=== PATIENT | male | born 1995 | race Caucasian/White ===

== ENCOUNTER 2017-09-06 22:55 | Emergency (ER) | payer BC ==
[2017-09-06 22:58] VITALS: O2SAT 98
[2017-09-06] MEDS ORDERED: Sodium Chloride 0.9% 1,000 ML IV STA (23:37)
--- NOTE | 2017-09-06 23:44 | ED PDOC ---
HPI: General Adult Time Seen by Provider: 09/06/17 23:18 Chief Complaint (Nursing): Syncope Chief Complaint (Provider): Flu-Like Symptoms History Per: Patient History/Exam Limitations: no limitations Onset/Duration Of Symptoms: Days (x1) Have you had recent travel within the past 21 days to any of the following countries: [place], [place], [place] or [place]?: No Current Symptoms Are (Timing): Still Present Additional Complaint(s): 22 year old male presents to ED with complaints of flu-like symptoms x1 day and has no past medical history. (+) cough, congestion, sore throat, body aches, fever, and decreased appetite. Notes that he attempted to cook and lost consciousness. (-) head injury, chest pain, SOB, or palpitations. Notes taking Dayquil all day today. PCP: None Past Medical History Reviewed: Historical Data, Nursing Documentation, Vital Signs Vital Signs: Last Vital Signs Temp 101.6 F H 09/06/17 22:56 Pulse 100 H 09/06/17 22:56 Resp 18 09/06/17 22:56 BP 115/61 09/06/17 22:56 Pulse Ox 98 09/07/17 02:13 - Medical History PMH: No Chronic Diseases - Surgical History Surgical History: No Surg Hx - Family History Family History: States: No Known Family Hx - Living Arrangements Living Arrangements: With Friends/Others - Home Medications Home Medications: Ambulatory Orders Medication Instructions Recorded Oseltamivir [Tamiflu] 75 mg PO BID #10 cap 09/07/17 - Allergies Allergies/Adverse Reactions: Allergies Allergy/AdvReac Type Severity Reaction Status Date / Time No Known Allergies Allergy Verified 09/06/17 22:56 Review of Systems ROS Statement: Except As Marked, All Systems Reviewed And Found Negative Constitutional: Positive for: Fever, Other ((+) body aches) ENT: Positive for: Nose Congestion, Throat Pain Cardiovascular: Negative for: Chest Pain, Palpitations Respiratory: Positive for: Cough. Negative for: Shortness of Breath Gastrointestinal: Positive for: Other ((+) decreased appetite) Physical Exam - Reviewed Nursing Documentation Reviewed: Yes Vital Signs Reviewed: Yes - Physical Exam Appears: Positive for: Non-toxic, No Acute Distress. Negative for: Uncomfortable Head Exam: Positive for: ATRAUMATIC, NORMOCEPHALIC Skin: Positive for: Normal Color, Warm, Dry Eye Exam: Positive for: Normal appearance, EOMI, PERRL ENT: Positive for: Pharyngeal Erythema, Other (tonsillar hyperemia). Negative for: Normal ENT Inspection (dry lips and mucous membranes) Neck: Positive for: Normal Cardiovascular/Chest: Positive for: Regular Rate, Rhythm, Tachycardia Respiratory: Positive for: Normal Breath Sounds. Negative for: Respiratory Distress Gastrointestinal/Abdominal: Positive for: Normal Exam, Soft. Negative for: Tenderness Back: Positive for: Normal Inspection Extremity: Positive for: Normal ROM. Negative for: Deformity Neurologic/Psych: Positive for: Alert, Oriented. Negative for: Motor/Sensory Deficits - Laboratory Results Result Diagrams: 09/06/17 23:45 09/06/17 23:45 - ECG O2 Sat by Pulse Oximetry: 98 (RA) Pulse Ox Interpretation: Normal Medical Decision Making Medical Decision Makin Initial impression: flu like symptom and syncope DDx: influenza with possible complications, vasovagal syncope due to dehydration , less likely cardiac arrhythmia Initial plan: * EKG * Labs * Trop I * NS IV * Toradol 30mg IVP * Tylenol 650mg PO * Influenza A B * Re-eval 005 Flu: positive for influenza A Chemistry and CBC unremarkable 0211 Upon re-evaluation, patient notes significant improvement in symptoms and has no complaints. Patient is ambulatory and walks with a steady gait. Patient notes ability to tolerate PO. Patient is stable for discharge. Scribe Attestation: Documented by Norah Montes acting as a scribe for Kim Borjas MD. Scribe Attestation: All medical record entries made by the Scribe were at my direction and personally dictated by me. I have reviewed the chart and agree that the record accurately reflects my personal performance of the history, physical exam, medical decision making, and the department course for this patient. I have also personally directed, reviewed, and agree with the discharge instructions and disposition. Disposition - Clinical Impression Clinical Impression: Syncope, Influenza, Vasovagal syncope - Patient ED Disposition Is Patient to be Admitted: No Doctor Will See Patient In The: Office Counseled Patient/Family Regarding: Studies Performed, Diagnosis, Need For Followup - Disposition Referrals: [facility] [Outside] Disposition: Routine/Home Disposition Time: 02:12 Condition: GOOD Additional Instructions: Drink plenty of fluids. Follow up with your PCP in 2-3 days. Prescriptions: Oseltamivir [Tamiflu] 75 mg PO BID #10 cap Instructions: Influenza (ED)
[2017-09-07] MEDS ORDERED: Insulin Regular 100 units/ml ONE (00:12)
[2017-09-07 00:16] LABS: BASO % 0.3 % (0.0-2.0); EOS % 0.1 % (0.0-4.0); HEMOGLOBIN 13.7 g/dL (12.0-18.0); LYMPH # 0.4 K/uL (1.0-4.3); LYMPH % 4.8 % (20.0-40.0); MEAN CELL VOLUME 86.1 fl (80.0-94.0); MEAN CORPUSCULAR HEMOGLOBIN 28.9 pg (27.0-31.0); MEAN CORPUSCULAR HGB CONC 33.5 g/dL (33.0-37.0); MEAN PLATELET VOLUME 8.2 fl (7.2-11.7); MONO # 1.2 K/uL (0.0-0.8); MONO % 14.7 % (0.0-10.0); NEUT # 6.8 K/uL (1.8-7.0); NEUT % 80.1 % (50.0-75.0); PLATELET COUNT 192 K/uL (130-400); RBC 4.76 Mil/uL (4.40-5.90); RED CELL DISTRIBUTION WIDTH 12.8 % (11.5-14.5); WHITE BLOOD COUNT 8.4 K/uL (4.8-10.8)
[2017-09-07 00:17] LABS: BLOOD UREA NITROGEN 13 mg/dl (9-20); CALCIUM 9.3 mg/dL (8.4-10.2); GFR AFRICAN-AMERICAN > 60; GFR NON-AFRICAN AMERICAN > 60
[2017-09-07 02:07] LABS: BANDS 5 % (0-2); LYMPHOCYTE 5 % (20-50); MONOCYTE 11 % (0-10); NEUTROPHIL 78 % (42-75); PLATELET ESTIMATE NORMAL (NORMAL); REACTIVE LYMPHOCYTES 1 % (0-0); STOMATOCYTES MODERATE; TOTAL CELLS COUNTED 100
[2017-09-07 02:38] VITALS: BP 129/78; PULSE 88; RESP 16; TEMP 99
--- NOTE | 2017-09-07 11:05 | CARD ---
APPROVED REPORT EKG Measurement Heart [id number] <Conclusion> Normal sinus rhythm Normal ECG
== END 2017-09-07 02:39 | disposition home or self-care (01) ==
LOC: H.ER 22:55
DX: J11.1 Influenza due to unidentified influenza virus with other respiratory manifestations (principal)
CPT/HCPCS: 80048; 84484; 85025; 87804; 93005; 96361; 96374; 99284; J1885; J7040